=== PATIENT | male | born 1990 | race African-American/Black ===

== ENCOUNTER 2016-07-28 23:57 | Emergency (ER) | payer OTHER ==
--- NOTE | ~2016-07-28 | CR142 ---
[facility] A Service of [facility] RADIOLOGY TEXT RESULTS PATIENT: GERALDINE SUAREZ LOCATION: SED : 86 UNIT #: [id number] AGE: [address]: CALE GUTIÉRREZ PA-C SEX: M ORDER DR: [id number] [address] [address] [id number] E MR#: [id number] Acc #: [id number] NAME: GERALDINE SUAREZ : 1990 SEX: M STUDY DATE/TIME: 07/29/2016 0:05 UNIT: SED ROOM: STUDY DESCRIPTION: CR Hand Min 3 Views Rt Attending Physician: Cale Gutiérrez Pa-C Ordering Physician: Physician Non-Staff MEDICAL IMAGING REPORT This report is preliminary unless electronic signature is present. EXAM Right hand, 07/29/2016 INDICATION Fall from a ladder at a height of 6 feet yesterday. Hand pain. TECHNIQUE 3 views of the right hand. No comparisons. FINDINGS The examination is abnormal. There is a dislocation of the PIP joint of the fifth digit. There is associated soft tissue swelling. There is an equivocal small chip or avulsion fracture associated with the PIP joint on the lateral projection. This measures only about 2 mm. IMPRESSION Dislocation of the PIP joint of the fifth digit. There may be a tiny chip or avulsion fracture present on the lateral view at the level of the PIP joint. Soft tissue swelling. STAT * RESULT Dictated by... Coy Ta M.D. THIS IS AN ELECTRONICALLY VERIFIED REPORT Coy Ta M.D. at 07/29/2016 6:28 AM Tammy TD: 07/29/2016 04:26 [facility] A Service [facility] RADIOLOGY TEXT RESULTS PATIENT: GERALDINE SUAREZ LOCATION: SED : [birth year] UNIT #: [id number] AGE: [address]: CALE GUTIÉRREZ PA-C SEX: M ORDER DR: JOB #: [id number] MEDICAL IMAGING REPORT Page 1 of 1
--- NOTE | ~2016-07-28 | CR115 ---
[facility] A Service of [facility] RADIOLOGY TEXT RESULTS PATIENT: GERALDINE SUAREZ LOCATION: SED : [birth year] UNIT #: [id number] AGE: [address]: CALE GILLESPIE PA-C SEX: M ORDER DR: [id number] [place] [id number] E MR#: [id number] Acc #: [id number] NAME: GERALDINE SUAREZ : 1990 SEX: M STUDY DATE/TIME: 07/29/2016 1:29 UNIT: SED ROOM: STUDY DESCRIPTION: CR Finger 2 View 5Th Rt Attending Physician: Cale Gillespie Pa-C Ordering Physician: Herb Voss M.D. MEDICAL IMAGING REPORT This report is preliminary unless electronic signature is present. EXAM Right fifth digit series INDICATION Dislocation of the right fifth digit, pain. TECHNIQUE 3 views right fifth digit. COMPARISON None. FINDINGS There has been interval reduction of the dislocation of the PIP joint fifth digit. No acute fracture identified. Previously described equivocal chip or avulsion fracture fragment on the lateral view from the prior study has no correlate on this subsequent exam. Mild soft tissue swelling. IMPRESSION Reduction of the dislocation fifth digit PIP joint. No distinct fracture. Mild soft tissue swelling. Dictated by... Coy Ta M.D. THIS IS AN ELECTRONICALLY VERIFIED REPORT Coy Ta M.D. at 07/29/2016 10:01 PM GABRIELA/jannette [facility] A Service of [facility] RADIOLOGY TEXT RESULTS PATIENT: GERALDINE SUAREZ LOCATION: SED : [birth year] UNIT #: [id number] AGE: [address]: CALE GILLESPIE PA-C SEX: M ORDER DR: TD: 07/29/2016 06:59 JOB #: [id number] MEDICAL IMAGING REPORT Page 1 of 1
--- NOTE | ~2016-07-28 | CR229 ---
[facility] A Service of [facility] RADIOLOGY TEXT RESULTS PATIENT: GERALDINE SUAREZ LOCATION: SED : [birth year] UNIT #: [id number] AGE: [address]: CALE GUTIÉRREZ PA-C SEX: M ORDER DR: [id number] [address] [address] [id number] E MR#: [id number] Acc #: [id number] NAME: GERALDINE SUAREZ : 1990 SEX: M STUDY DATE/TIME: 07/29/2016 0:05 UNIT: SED ROOM: STUDY DESCRIPTION: CR Shoulder Min 2 View Lt Attending Physician: Cale Gutiérrez Pa-C Ordering Physician: Physician Non-Staff MEDICAL IMAGING REPORT This report is preliminary unless electronic signature is present. EXAM Left shoulder 07/29/2016 INDICATION 26-year-old male with trauma. Fell from a 6 foot ladder yesterday. Left shoulder pain. TECHNIQUE 3 views left shoulder. COMPARISON None. FINDINGS No acute fracture. No shoulder separation or dislocation. No significant degenerative change. IMPRESSION Negative. Dictated by... Coy Ta M.D. THIS IS AN ELECTRONICALLY VERIFIED REPORT Coy Ta M.D. at 07/29/2016 6:31 AM GABRIELA/jannette TD: 07/29/2016 06:27 JOB #: [id number] MEDICAL IMAGING REPORT [facility] A Service [facility] RADIOLOGY TEXT RESULTS PATIENT: GERALDINE SUAREZ LOCATION: SED : [birth year] UNIT #: [id number] AGE: [address]: CALE GUTIÉRREZ PA-C SEX: M ORDER DR: Page 1 of 1
--- NOTE | ~2016-07-28 | CR20 ---
[facility] A Service [facility] RADIOLOGY TEXT RESULTS PATIENT: GERALDINE SUAREZ LOCATION: SED : [birth year] UNIT #: [id number] AGE: [address]: CALE GUTIÉRREZ PA-C SEX: M ORDER DR: [id number] [address] [address] [id number] E MR#: [id number] Acc #: [id number] NAME: GERALDINE SUAREZ : 1990 SEX: M STUDY DATE/TIME: 07/29/2016 0:05 UNIT: SED ROOM: STUDY DESCRIPTION: CR Ankle Min 3 Views Lt Attending Physician: Cale Gutiérrez Pa-C Ordering Physician: Physician Non-Staff MEDICAL IMAGING REPORT This report is preliminary unless electronic signature is present. EXAM Left ankle series 3 views 07/29/2016 INDICATION Fell from a ladder at a height of 6 feet yesterday. Ankle pain. TECHNIQUE 3 views. COMPARISON None. FINDINGS There is mild lateral soft tissue swelling. No acute fracture. Ankle mortise intact. IMPRESSION Mild soft tissue swelling laterally. Otherwise negative. Dictated by... Coy Ta M.D. THIS IS AN ELECTRONICALLY VERIFIED REPORT Coy Ta M.D. at 07/29/2016 10:01 PM GABRIELA/jannette TD: 07/29/2016 06:34 JOB #: [id number] MEDICAL IMAGING REPORT [facility] A Service [facility] RADIOLOGY TEXT RESULTS PATIENT: GERALDINE SUAREZ LOCATION: SED : [birth year] UNIT #: [id number] AGE: [address]: CALE GUTIÉRREZ PA-C SEX: M ORDER DR: Page 1 of 1
== END 2016-07-29 02:07 | disposition home or self-care (01) ==
LOC: SED 23:57
DX: S63.286A Dislocation of proximal interphalangeal joint of right little finger, initial encounter (principal); S93.402A Sprain of unspecified ligament of left ankle, initial encounter; S00.81XA Abrasion of other part of head, initial encounter; F17.210 Nicotine dependence, cigarettes, uncomplicated; S40.212A Abrasion of left shoulder, initial encounter; W11.XXXA Fall on and from ladder, initial encounter
CPT/HCPCS: 26770; 29515; 73030; 73130; 73140; 73610; 99284